=== PATIENT | male | born 1940 | race Caucasian/White ===

== ENCOUNTER 2019-07-26 18:22 | Inpatient (IN) | payer OTHER ==
[~2019-07-26] VITALS: Ht 177.8 cm; Wt 90.4 kg
[2019-07-26 18:22] VITALS: BP 145/82
[2019-07-26 19:11] LABS: HEMATOCRIT 38.8 % (42.0-52.0); HEMOGLOBIN 13.2 gm/dL (14.0-18.0); MCH 29.3 pg (26.0-34.0); MCHC 34.1 g/dL (28.0-37.0); MCV 85.8 fL (80.0-100.0); PLATELET COUNT 153 thou/uL (150-400); RBC 4.52 mil/uL (4.50-6.00); RDW 15.7 % (10.5-14.5); WBC 6.7 thou/uL (4.0-11.0)
[2019-07-26 19:20] LABS: ANION GAP 9 mmol/L (7-16); BUN 24 mg/dL (7-18); CALCIUM 9.6 mg/dL (8.5-10.1); CHLORIDE 108 mmol/L (98-107); CO2 28 mmol/L (21-32); CREATININE 1.6 mg/dL (0.7-1.3); GLUCOSE 132 mg/dL (74-106); POTASSIUM 4.2 mmol/L (3.5-5.1); SODIUM 145 mmol/L (136-145)
[2019-07-26 19:27] LABS: SGOT 34 U/L (15-37); SGPT 34 U/L (30-65); TOTAL BILIRUBIN 3.4 mg/dL (<0.1-1.0); TOTAL PROTEIN 6.9 g/dL (6.4-8.2)
[2019-07-26 19:29] LABS: SALICYLATE < 2.8 mg/dL (2.8-20.0)
[2019-07-26 19:56] LABS: ABSOLUTE NEUTROPHILS 4.6 thou/uL (1.4-8.2)
[2019-07-26 19:57] LABS: ANISOCYTOSIS 1+
[2019-07-26 20:18] LABS: URINE BILIRUBIN 1+ (Negative); URINE BLOOD TRACE (Negative); URINE CLARITY CLEAR; URINE COLOR YELLOW; URINE GLUCOSE-RANDOM* NEGATIVE (Negative); URINE KETONES NEGATIVE (Negative); URINE LEUKOCYTES-REFLEX NEGATIVE (Negative); URINE NITRITE-REFLEX NEGATIVE (Negative); URINE PROTEIN (DIPSTICK) NEGATIVE (Negative); URINE SPECIFIC GRAVITY >= 1.030 (1.005-1.035)
[2019-07-26 20:19] LABS: ICTOTEST (BILI CONFIRMATORY) Negative (Negative)
[2019-07-26 20:23] LABS: AMP/METHAMP Negative (Negative); BARBITURATES Negative (Negative); BENZODIAZEPINES Negative (Negative); COCAINE Negative (Negative); METHADONE Negative (Negative); OPIATES Negative (Negative); PCP Negative (Negative)
[2019-07-26] MEDS ORDERED: PLAVIX 75 MG TA75 MG PO (21:14)
[2019-07-26] MEDS ORDERED: LIPITOR40 MG PO (21:14)
[2019-07-26] MEDS ORDERED: ASA81BEC PO (21:14)
[2019-07-26] MEDS ORDERED: LORATIDINE 10 M10 M1 PO (21:15)
[2019-07-26] MEDS ORDERED: RISPERDAL0.5 MG PO (21:15)
[2019-07-26] MEDS ORDERED: SEROQUEL 100 M100 M1 PO (21:15)
[2019-07-26] MEDS ORDERED: SUPER THERAVIT1 EACH PO (21:15)
[2019-07-26] MEDS ORDERED: SEROQUEL 50 MG50 M1 PO ×2 (21:16)
[2019-07-26] MEDS ORDERED: VITAMIN B12-FO1 EAC1 PO (21:17)
[2019-07-26] MEDS ORDERED: FAMOTIDINE 20 M20 MG PO (21:17)
[2019-07-26] MEDS ORDERED: ZYPREXA 5 MG TAB5 M1 PO (21:17)
[2019-07-26] MEDS ORDERED: PROPRANOLOL 4040 M1 PO (21:18)
[2019-07-26] MEDS ORDERED: DULCOLAX10 MG RECTAL (21:21)
[2019-07-26] MEDS ORDERED: LORAZEPAM 0.50.5 MG PO (21:22)
[2019-07-26] MEDS ORDERED: OLANZAPINE10 M2 IM (21:22)
[2019-07-26 21:23] VITALS: BP 105/67
[2019-07-26 22:09] VITALS: BP 118/69
--- NOTE | 2019-07-27 00:11 | NUR ---
Pt admitted to unit from [facility] ER @ 2300 via gurney. Pt assisted to bed with two person assist. Pt had difficulty with ambulation et appeared very confused when asked if he could walk. VSWNL. Health assessment with no abnormalities noted other than bilateral bruising to flanks. Pt states he is unsure how obtained the bruising to flanks. Pt denies SI/HI/AVH @ present time. Consent to treat obtained from DPOA Emily Teixeira which is pt's daughter. Physician called et orders obtained. Hospitalist notified of pt's admission to unit. Pt currently resting in bed with eyes closed. Will continue to monitor per protocol.
[2019-07-27 02:49] VITALS: BP 132/72
--- NOTE | 2019-07-27 08:35 | EKG ---
[facility] [place] [address] ELECTROCARDIOGRAM REPORT Name: ADRIA TELLO V Room #: 523A-A ADM IN M.R.#: [id number] Admission: 07/26/19 Attend Phys: Fidencio Rosen DO Discharge: Date of : 40 Report #: [id number] THIS REPORT FOR: cc: FATMATA BULLOCK Physician not on staff Vicente Leal MD [facility] ~ THIS REPORT FOR: //name// [facility] ED Test Date: 2019-07-26 Test Time: 19:13:02 Pat Name: ADRIA TELLO Department: Room: [facility] Gender: M Software Integration Developer: JOHN : 1940 Requested By: Gina Wilcox Order Number: [id number] MD: Vicente Leal Measurements Intervals Daniel Rate: 94 P: 45 KS: 171 QRS: -44 QRSD: 105 T: 54 QT: 363 QTc: 454 Interpretive Statements Sinus rhythm Left anterior fascicular block Abnormal R-wave progression, late transition No previous ECG available for comparison Electronically Signed On 07-27-2019 8:33:55 CDT by Vicente Leal [email or web address] <ELECTRONICALLY SIGNED> By: Vicente Leal MD, FACC 07/27/19 0833 191 12 Vicente Leal MD, [facility] /EPI
[2019-07-27 08:39] VITALS: BP 136/72
--- NOTE | 2019-07-27 09:26 | NUR ---
Sw spoke with Emily PAULSON and she described the mental helath changes and possible memory loss of her dad. Pt was in rehab in [place] and formerly [facility] would like him rehab to home but is not sure if that is viable. Kade completed he intake assesment and TP.
--- NOTE | 2019-07-27 10:58 | NUR ---
PATIENT CARE ASSUMED AT 1900. PATIENT UP IN DINING BHATT WHEN APPROACHED. PATIENT REFUSED MEDICATIONS THIS MORNING. CONFUSED BUT WANTED TO KNOW WHO PRESCRIBED AND HAD NOT SEEN ANY DOCTOR SINCE ARRIVAL. PATIENT WAS IRRITATED WHEN ENCOURAGED. ADVISED DR. LANDIN OF REFUSAL AND HE PRESCRIBED IM 5 MG. OF ZYPREXA WHEN MEDS REFUSED. PATIENT WAS VERY COMPLIANT AND NON RESISTANT WITH IM. PATIENT BECAME MUCH MORE PLEASANT DAY PROGRESSED. CALLED DAUGHTER LUBA FOR APPROVAL AND NOTIFICATION OF ORDERED SHOT AND RATIONAL BEHIND IT. DAUGHTER RETURNED CALL AND UNDERSTOOD AND OK WITH IM. PATIENT HAS BEEN MANUVERING AROUND UNIT IN WHEELCHAIR. UNSTEADY ON FEET AND HISTORY OF FALLS PER DAUGHTER. ADVISED TO TELL PATIENT VA MEDICATIONS PER DAUGHTER AND WILL READILY TAKE.
--- NOTE | 2019-07-27 14:53 | NUR ---
Emily returned VM and confimred that there canbe a family meeting at 12:[address] gresham request.
--- NOTE | 2019-07-27 14:59 | NUR ---
SW completed intake assemsnst and TP. Set up famiy meeting ofr TR at 12:30pm confirmed with Dr gresham
--- NOTE | 2019-07-27 15:36 | NUR ---
LOGGING SUPERVISOR met 1;[address] of RT group[address] Patient is friendly and cordial in interaction. He answered all assessment questions. Patient appeared to be hallucinating; reaching for his wallet in his back pocket, opening it, and handing his "credit card" to pay for his stay. Patient then looked through [employer] magazine.
--- NOTE | 2019-07-28 00:02 | NUR ---
Assumed care of patient this pm shift. Patient is oriented to self. Patients affect blunted. Patient denies hi/si. Patient denies pain. Patient is difficult to understand when speaking. Using yes and no questions seem to help. Patient ambulates via wheel chair. Patient takes medications whole. Patient has been trying to get out of bed and started hitting and kicking the bed rails. Patient was spoken to about the time and importance of a good night sleep. Patient resumed hitting the rails after rn left the room. Patient given an im injection for agitation. Patients assessment shows clear breath sounds, active bowel sounds, and s1 s2 heard with auscultation. We will continue to monitor.
[2019-07-28 07:17] LABS: ALBUMIN 3.7 g/dL (3.4-5.0); DIRECT BILIRUBIN 0.7 mg/dL (<0.1-0.2); TOTAL BILIRUBIN 3.3 mg/dL (<0.1-1.0); TOTAL PROTEIN 5.8 g/dL (6.4-8.2)
[2019-07-28 09:04] VITALS: BP 132/82
--- NOTE | 2019-07-28 11:08 | NUR ---
Sitting in WC without s/o distress. Laughing and making comments to staff. Initially resistant to taking meds but then took whole without difficulty. Confused speech at times. Alert and orientated X3, denies SI/HI. Breath sounds clear t/o. Reg HR auscultated. Color pink with brisk capillary refill and palpable peripheral pulses. Active bowel sounds over soft, rounded abdomen. Currently sitting on toilet trying to pass BM. Able to stand and take a few steps with assistance but gait unsteady. Resistant to help with ambulation.
--- NOTE | 2019-07-28 13:53 | NUR ---
SW attempted to complete the SLUMS with this pt and he was unable to answer the simple questions. Pt is unable to follow simple directions. Pt is pleasantly confused.
[2019-07-28 14:47] LABS: FOLIC ACID 61.9 ng/mL (8.6-58.9)
--- NOTE | 2019-07-28 16:48 | NUR ---
CESAR attempted to complete the SLUMS and pt was not able to do this. CESAR then called and spoke to Emily and she asked theat the [phone] ([phone] ATTOlive Amaya.
[2019-07-28 20:37] VITALS: BP 123/81
--- NOTE | 2019-07-28 23:08 | H ---
[facility] [place] [address] HISTORY AND PHYSICAL Name: ADRIA TELLO V Room #: 523A-A ADM IN M.R.#: [id number] Admission: 07/26/19 Attend Phys: Fidencio Rosen DO Discharge: Date of : 40 Report #: [id number] THIS REPORT FOR: cc: FATMATA BULLOCK Physician not on staff Fidencio Rosen DO ~ CC: Fidencio BULLOCK Physician staff DATE OF SERVICE: 07/26/2019 INPATIENT PSYCHIATRIC EVALUATION ATTENDING PHYSICIAN: Fidencio Rosen DO. RISK REDUCTION COUNSELOR: Cb Dang MD REASON FOR ADMISSION AND CHIEF COMPLAINT: Behavioral disturbance at the nursing facility in the [place], [place]. SOURCES OF INFORMATION: Outside records and Emergency Room notes. HISTORY OF PRESENT ILLNESS: This is a 78-year-old male whose family had contacted us prior to his ER presentation. The daughter lives in [place]. Apparently, the patient reported hallucinations. Symptoms began on 07/02/2019 and are increasing worse since. Per the patient's family the patient has "not really been himself" and has become more agitated at the staff at his SNF per SNF records. The patient has been bothering other residents and became aggressive only. Recently they reported medication has been changed since the symptoms began. The patient's family also states that they have noticed more jaundice in the patient as well as he is having an elevated bilirubin and A1c levels since he began to stay long-term 4 days ago. No aggravating, no relieving factors. No new medications for symptoms prior to arrival. He denied fever, chills, nausea, vomiting or cough, shortness of breath. PAST SURGICAL HISTORY: CABG, stent placement, knee replacement. MEDICAL HISTORY: Hypertension. CURRENT HOME MEDICATIONS: Metoprolol. Other home medications include aspirin 81 mg p.o. daily, atorvastatin 40 mg p.o. daily, Plavix 75 mg p.o. daily, loratadine 10 mg p.o. daily, multivitamin, risperidone 1 mg p.o. at bedtime. Seroquel 150 mg p.o. at bedtime, 50 mg in the morning. B12 and folic acid supplement, olanzapine 5 mg p.o. daily, famotidine 20 mg b.i.d., propranolol 40 mg p.o. b.i.d., Dulcolax suppository p.r.n. and p.r.n. olanzapine and lorazepam. [facility] [address] [place] [address] HISTORY AND PHYSICAL Name: ADRIA TELLO V Room #: 523A-A ADM IN [facility].#: [id number] Admission: 07/26/19 Attend Phys: Fidencio Rosen DO Discharge: Date of : 40 Report #: [id number] ALLERGIES: MORPHINE, OXYCODONE, TRAMADOL. SOCIAL HISTORY: Denies smoking, alcohol or recreational drug use. REVIEW OF SYSTEMS: From the ER, CONSTITUTIONAL: Negative for fever or chills. RESPIRATORY: Negative for cough or shortness of breath. CARDIOVASCULAR: Negative for chest pain or palpitations. MUSCULOSKELETAL: Negative for back pain or muscle pain. SKIN: Negative for any rashes. NEUROLOGICAL: Negative for numbness, tingling or weakness. Otherwise, review of systems limited due to the patient's cooperation and dementia. VITAL SIGNS: Weight 90.72 kg, height 177.8 cm. Physical exam grossly normal. LABORATORY DATA: From the ER, sodium 145, potassium 4.2, chloride 108, bicarbonate 28, anion gap 9, BUN 24, creatinine 1.6, estimated GFR 42, glucose 132, calcium 9.6, total bilirubin 3.4, AST 34, ALT 34, alkaline phosphatase 170, total protein 6.9, albumin 4.0. White count 6.7, H and H 13.2 and 38.8, platelet count 153. UDS was negative. Tylenol less than 2, salicylate is less than 2.8. Alcohol less than 10. Urinalysis showed 1+ bilirubin, trace blood. EKG was done in the ER. It showed QTc 454, QT 363, AL 171, heart rate 94, left anterior fascicular block, sinus rhythm. Some additional laboratories reviewed. White cell count 5.3 that was done on 07/13/2019 in [place]. H and H 13.9 and 41.5, platelet count was low at 119. Urinalysis was negative at that time. Electrolytes showed total bilirubin of 3.5, it looks like they do not break down direct or indirect. Serum protein of 5.9. The bilirubin was negative in the urine then. Blood negative. Leukocyte esterase negative. It looks like the patient was admitted at hospital in [place] briefly. I have some records around 07/01/2019. That hospitalization described he was agitated, behavioral changes, confuses, hallucinations. Seroquel and aspirin were started. Some other notes from the long-term on 07/25/2019, having auditory hallucinations. Admission in [place] for being combative with assistants and behavioral difficulty at the long-term. I have some notes from 05 of July there, so I think it was longer than 4 days at the [facility] and 4 days may have been at the medical center hospitalization. PHYSICAL EXAMINATION: Seated in wheelchair. He pushed my hand away when I went to check his name on his ID band. [facility] [place] [place] [address] HISTORY AND PHYSICAL Name: ADRIA TELLO V Room #: 523A-A ADM IN M.R.#: [id number] Admission: 07/26/19 Attend Phys: Fidencio Rosen DO Discharge: Date of : 40 Report #: [id number] MENTAL STATUS EXAMINATION: This is a well-developed, age appearing male, wearing glasses. Attention limited. Concentration limited. Speech is normal rate. Thought process linear and goal directed. Thought content, stated he was a . Intermittent psychomotor agitation. Mood and affect constricted, irritable, congruent. Denied SI or HI. Denied auditory, visual, or tactile hallucinations to me, but I think he does have them. Insight impaired, judgment impaired. Suspect memory impaired, but did not test today. Fund of knowledge diminished. FORMULATION: A 78-year-old male brought in for behavioral disturbance from long-term. DIAGNOSES: Major neurocognitive disorder, probably Alzheimer's suspicious with behavioral disturbance, number of comorbidities including hyperlipidemia, coronary artery disease. PLAN: Evaluate, stabilize, obtain collateral. With regard to medications, ordered 5 mg at bedtime of olanzapine, 40 mg atorvastatin, 40 mg b.i.d. propranolol, 2.5 mg daily olanzapine, change to prn from scheduled Seroquel, multivitamin daily, loratadine daily. Folic acid, B12 supplement, famotidine. Remains on Seroquel 50 mg p.r.n. at bedtime. Otherwise, house PRNs. Plan to titrate up the olanzapine. Also will contact daughter, Candido, at [phone]. I will give a quick buzz to her. Time spent on interview, review of records, coordination of care is at least 60 minutes. STRENGTHS: She is insured, supportive family. WEAKNESSES: Neurodegenerative history, number of medical problems. <ELECTRONICALLY SIGNED> By: Fidencio Rosen DO 07/28/19 2308 [id number] [id number] Fidencio Rosen DO /nt
[2019-07-28 23:13] VITALS: BP 123/81
--- NOTE | 2019-07-29 00:28 | NUR ---
Assumed care of patient this pm shift. Patient sitting in mileu in a wheelchair. Patient is hard of hearing. Patient is confused about why he is here. Patients affect is blunted. Patient speaks in low tones. Patient denies hi/si. Patient ambulates via wheel chair and is unable to bare the majority of his weight. Patient requires assist of 2 to get back to bed. Patients assessment shows clear breath sounds, active bowel sounds, and s1 s2 heard with auscultation. Patient has swelling bilaterally in ankles. We will continue to monitor.
[2019-07-29 08:03] VITALS: BP 124/78
[2019-07-29 08:45] LABS: ALBUMIN 3.6 g/dL (3.4-5.0); CALCIUM 9.3 mg/dL (8.5-10.1); CREATININE 1.3 mg/dL (0.7-1.3); TOTAL BILIRUBIN 3.4 mg/dL (<0.1-1.0); TOTAL PROTEIN 6.6 g/dL (6.4-8.2)
--- NOTE | 2019-07-29 14:01 | NUR ---
UP IN W/C MOST OF DAY. ORIENTED TO NAME ONLY FORGETFUL AND CONFUSED. SPEECH MUMBLY AND WORDS DO NOT MAKE SENSE. APPEARS TO BE HAVING VISUAL HALLUCINATIONS TALKING ABOUT WORKING AND MAKING PARTS. FAIR APPETITE. NO C/O PAIN.
--- NOTE | 2019-07-29 15:43 | NUR ---
CESAR sent referral to [facility], fax [phone]. CESAR Contacted [facility] and was informed they only accept [facility] residents.
[2019-07-29 17:43] VITALS: BP 130/61
--- NOTE | 2019-07-29 18:09 | NUR ---
FOUND ON FLOOR IN BHATT. WAS AMBULATING WITH WALKER. NO APPARENT INJURY AND PATIENT DENIES INJURY. ASSTED TO [facility] CHAIR WITH LAP BELT AND CHAIR ALARM. NOTIFIED.
[2019-07-29 19:43] VITALS: BP 104/74
[2019-07-29 20:00] VITALS: BP 104/74
[2019-07-29 20:07] LABS: SYPHILIS AB Non Reactive (Non Reactive)
--- NOTE | 2019-07-30 02:16 | NUR ---
ASSESSMENT: PT WAS IN THE DAYROOM UNTIL 2129. ONCE TAKEN TO BED HE TURNED SIDE WAYS 3 TIMES IN ATTEMPTS TO GET OOB. USED BELLIGERENT LANGUAGE TOWARDS STAFF AND SCREAMED ABOUT LEAVING HIM ALONE AND OT GET OUT OF HIS ROOM. TEMP AT 2000 WAS 99.5 RETAKE OF TEMP AT 0000 WAS 98.3. DID REQUIRE A IM INJECTION OF OLANZAPINE 5 MG AT 2330. REMAINS FREE FROM FALLS, POC FOLLOWED. SLOW PROGRESS, WILL CONTINUE TO MONITOR.
[2019-07-30 07:51] VITALS: BP 97/63
--- NOTE | 2019-07-30 09:55 | NUR ---
Assumed care at 0700. Patient is oriented only to self. At one time he had a brief outburst of raising his voice, pointing his finger. He denies pain, has no concerns at this time.
--- NOTE | 2019-07-30 12:29 | NUR ---
At lunch took out upper denture. Declined to have it replaced into his mouth after fixodent was applied. Then threw tray on the floor. Has orange coloring on his lips like lipstick but not lipstick. Took out lower denture. Trying to fight staff who is attempting to put denture in a safe place. He is not saying why he is doing those things. Unknown trigger for aberrant behavior. He was offered ice creaq, pudding, and applesauce as alternative foods to lunch. He declined to eat even though meat was cut up finely.
--- NOTE | 2019-07-30 18:47 | NUR ---
No voiced complaints. Needs staff to feed him. He is not able to focus on feeding himself. He had dentures in for dinner with staff helping feed him. He does not offer conversation.
[2019-07-30 20:01] VITALS: BP 129/87
--- NOTE | 2019-07-31 05:21 | NUR ---
Assumed care of pt @ 1900. Pt calm et cooperative this shift. Took medications crushed in applesauce. Socialized in dayroom with peers until HS. Pt unable to communicate clearly, but appeared to enjoy himself. VSWNL. Health assessment with no abnormalities noted at present time. Unable to assess SI/HI but pt does not appear to be in any acute distress at present time. Currently resting in bed with eyes closed. Will continue to monitor per protocol.
[2019-07-31 07:41] VITALS: BP 148/73
--- NOTE | 2019-07-31 09:15 | NUR ---
Date of Admission: 07/26/19 Date of Activity Therapy Assessment:07/28/2019 Activity Goal: 1:1, engagement in the milieu Initial Goal: Communication, orientation and structure Weekly progress towards goal: Did not achieve Group participation level: N/A- COVID 19 Behaviors observed: Difficulty concentrating. Yelling out to peers when RT tries to engage him in 1:1 session. Difficult to engage. Throwing leisure items (i.e. blocks). Plan: No change towards goal
--- NOTE | 2019-07-31 12:06 | NUR ---
SITTING IN GERICHAIR IN DAYROOM EATING BREAKFAST UPON INITAL ASSESSMENT THIS AM. REQUIRES ASSIST WITH FEEDING SELF AND WHEN GIVEN AM MEDICATIONS NOTED TO HAVE SEVERAL WHOLE PEICES OF FRUIT IN HIS MOUTH. SPEECH GARBLED AND DIFFICULT TO UNDERSTAND AND APPEARS TO BE FRAGMENTED AND NON-GOAL DIRECTED. ORIENTED TO NAME ONLY. OBSEVED TO BEGIN TO LAUGH LOUDLY WITH NO APPARENT TRIGGER ,TALKING LOUDLY TO SELF VS UNSEEN OTHERS. RESTLESS AT TIMES IN GERICHAIR BUT AFTER TOILETING AND REPOSITIONING OR DIVERSONAL ACTIVITY IS ABLE TO BE DISTRACTED/COMFORTED AND BECOMES CALMER. NO NOTED FACIAL GRIMACING OR MOANING OR ANY OTHER INDICATERS OF PAIN/DISCOMFORT. VS STABLE. REMAINS ON HIGH FALLS RISK
--- NOTE | 2019-07-31 15:05 | NUR ---
DURING PHYSICAL ASSESSMENT THIS PM SOCKS REMOVED TO CHECK FEET AND IS OBSERVED TO HAVE SMALL ABRASIONS TO 3RD,4TH AND 5TH TOE OF RIGHT FOOT AND GREEAT TOE OF LEFT FOOD. ABRASIONS ARE PEA SIZED AND HAVE NO DRAINGE. FEET ARE SWOLLEN,COLD TOT OUCH AND PURPULE COLORED. DR. LANDIN AND DR. NGUYEN NOTIED. LEGS ELEVATED AND SOCKS REMOVED. ORDERS RECEIVED-WOUNDS PHOTGRAPHED AND PLACED IN CHART.
[2019-07-31 16:46] LABS: HEMATOCRIT 39.5 % (42.0-52.0); HEMOGLOBIN 13.6 gm/dL (14.0-18.0); MCH 29.6 pg (26.0-34.0); MCHC 34.3 g/dL (28.0-37.0); MCV 86.2 fL (80.0-100.0); PLATELET COUNT 195 thou/uL (150-400); RBC 4.59 mil/uL (4.50-6.00); RDW 15.6 % (10.5-14.5)
--- NOTE | 2019-07-31 17:00 | NUR ---
INCONTINENT OF LARGE LOOSE STOOL,SMALL AMOUNT OF URINE IN BRIEF APPEARS CONCENTRATED AND HAS STRONG ODOR-REQUIRED MAX ASSIST OF THREE TO TRANSFER-WHEN PERINEAL CARE AND BEDDING CHANGE BEING DONE NOTED TO HAVE EXTENSIVE BRUISING PURPLE/REDDISH IN COLOR TO RIGHT LOWER RIB CAGE/ABDOMEN AND EXTENDING INTO RIGHT HIP AND COCYX. AND NOTIFIED AND PHOTO OBTAINED AND PLACED IN CHART. LE DOPPLER ORDERED AND US AT BEDSIDE CURRENTLY.
[2019-07-31 17:07] LABS: ABSOLUTE NEUTROPHILS 6.9 thou/uL (1.4-8.2)
[2019-07-31 17:08] LABS: ANISOCYTOSIS 1+
[2019-07-31 17:13] LABS: ALBUMIN 3.8 g/dL (3.4-5.0); CALCIUM 9.1 mg/dL (8.5-10.1); CREATININE 1.5 mg/dL (0.7-1.3); DIRECT BILIRUBIN 0.7 mg/dL (<0.1-0.2); PHOSPHORUS 3.8 mg/dL (2.5-4.9); POTASSIUM 4.3 mmol/L (3.5-5.1); TOTAL BILIRUBIN 2.9 mg/dL (<0.1-1.0); TOTAL PROTEIN 6.2 g/dL (6.4-8.2)
--- NOTE | 2019-07-31 19:28 | NUR ---
RESULTS OF LE DOPPLER AND STAT LAB WORK CALLED TO DR. NGUYEN-ORDER RECEIVED FOR IV FLUIDS NS AT 50 CC PER HOUR-1;[address] NGUYEN-DR. LANDIN CONTACTED AND ORDER RECEIVED FOR 1;1 WELL-STATES HE WILL CALL DR. NGUYEN RE CHANGING IV RATE TO BE 4 HR BOLUS. IV STARTED IN LEFT UPPER ARM WITH 20 GUAGE NEEDLE BY IV START TEAM.
[2019-07-31 19:47] VITALS: BP 120/69
--- NOTE | 2019-08-01 02:28 | NUR ---
ASSUMED PT CARE AROUND 1930. ALERT AND CONFUSED. DOES FOLLOW COMMAND TO TAKE MEDS. KAREEM IV ACCESS WAS EXTABLISHED. HYDRATION ORDER RE-ORDERED BY PER UNIT PROTOCOL AND COMPLETED 500CC NS AFTER CLARIFICATION. KEPT NPO AFTER MN FOR PIPIDA IN AM. NO S/S ACUTE DISTRRES NOTED OR REPORTED AT THIS TIME. WILL CONT TO MONITOR FOR ANY CHANGES IN CONDITION.
[2019-08-01 05:56] LABS: ABSOLUTE NEUTROPHILS 5.4 thou/uL (1.4-8.2); BASOPHILS 0.6 % (0.0-2.0); EOSINOPHILS 3.7 % (0.0-3.0); HEMATOCRIT 37.4 % (42.0-52.0); HEMOGLOBIN 12.7 gm/dL (14.0-18.0); LYMPHOCYTES 12.9 % (24.0-44.0); MCH 29.5 pg (26.0-34.0); MCV 86.9 fL (80.0-100.0); MONOCYTES 10.5 % (1.0-8.0); PLATELET COUNT 159 thou/uL (150-400); POLYS 72.3 % (36.0-66.0); RBC 4.31 mil/uL (4.50-6.00); RDW 15.8 % (10.5-14.5); WBC 7.5 thou/uL (4.0-11.0)
[2019-08-01 06:07] LABS: INR 1.1; PROTIME 11.4 Seconds (9.3-11.4)
[2019-08-01 06:20] LABS: ALBUMIN 3.5 g/dL (3.4-5.0); CALCIUM 8.9 mg/dL (8.5-10.1); CREATININE 1.4 mg/dL (0.7-1.3); PHOSPHORUS 3.6 mg/dL (2.5-4.9); TOTAL BILIRUBIN 2.8 mg/dL (<0.1-1.0); TOTAL PROTEIN 6.2 g/dL (6.4-8.2)
[2019-08-01 08:40] VITALS: BP 136/84
--- NOTE | 2019-08-01 09:30 | NUR ---
Assumed care 0700. Npo for liver testing. Stat RT tx. done. Bladder scanned with 707cc. Straight cathed with 850cc returned tyler with a couple red threads, with specimen sent for culture. went to testing with staff accompaniment.
[2019-08-01 10:28] LABS: LIPASE 124 U/L (73-393)
[2019-08-01 10:36] LABS: AMYLASE 25 U/L (25-115)
[2019-08-01] MEDS ORDERED: FLOMAX0.4 MG PO (14:00)
[2019-08-01] MEDS ORDERED: ZYPREXA 5 MG TAB5 M1 PO ×2 (14:01→14:02)
[2019-08-01] MEDS ORDERED: PEPCID20 MG PO (14:05)
[2019-08-01] MEDS ORDERED: PROSCAR 5MG TABL5 MG PO (14:06)
[2019-08-01] MEDS ORDERED: FOLIC ACID1 MG PO (14:06)
--- NOTE | 2019-08-01 15:10 | NUR ---
Returned to unit prior to lunch. was assisted with eating, though took his dentures out, ended up eating pudding/applesauce, drinking beverages. Pericare with 2 formed small BM's. Confused. Tried to get out of bed x 3. Dentures temporarily misplaced were located prior to being sent to room 203 at 1510. IV sites left upper arm and right wrist removed due to no longer needing them. Wound care nurses were on unit for lower extremities. Scabbed sores on toes bilaterally. Toes/feet get reddened when hang down. When in bed color on toes and feet dramatically improve. BLE with edema, non pitting. Glasses and dentures sent to 203 with pt. accompanied by 2 staff w/belongings.
--- NOTE | 2019-08-02 12:09 | HC ---
[facility] [place] [address] CONSULTATION Name: ADRIA TELLO V Room #: [address] [place] [address] IN M.R.#: [id number] Admission: 07/26/19 Attend Phys: Fidencio Rosen DO Discharge: 08/01/19 Date of : 40 Report #: [id number] THIS REPORT FOR: cc: FATMATA BULLOCK Physician not on staff Wallace Burks MD ~ CC: Fidencio BULLOCK Physician staff DATE OF SERVICE: 08/01/2019 CONSULTING PHYSICIAN: Dr. Burks. REASON FOR CONSULTATION: Possible choledocholithiasis. ASSESSMENT: 1. Possible choledocholithiasis. 2. Biliary dyskinesia. RECOMMENDATIONS: 1. Thank you for the consultation. I will follow along. 2. The patient is going for MRCP. We will follow up results. 3. Pending MRCP results, the patient may need an ERCP. 4. The patient should have laparoscopic cholecystectomy this hospitalization if he does indeed have choledocholithiasis. 5. Please consider holding Plavix and aspirin in the event that he will need a procedure. HISTORY OF PRESENT ILLNESS: The patient is a very pleasant 78-year-old gentleman who is in the behavioral health unit due to hallucinations. The patient is not oriented to place or time and is not able to answer medical questions and is very difficult to understand. Therefore, the information was obtained from the chart and medical staff. The patient was found to have hyperbilirubinemia. A HIDA scan was performed that demonstrated a possible CBD partial obstruction. The patient currently denies abdominal pain, nausea or vomiting. PAST MEDICAL HISTORY: 1. Hypertension. 2. Hyperlipidemia. 3. Coronary artery disease, status post coronary artery bypass graft. 4. Anxiety. PAST SURGICAL HISTORY: Unknown. No major surgical incisions on his abdomen [facility] [address] [place] [address] CONSULTATION Name: ADRIA TELLO V Room #: 523A-A [facility] IN ..#: [id number] Admission: 07/26/19 Attend Phys: Fidencio Rosen DO Discharge: 08/01/19 Date of : 40 Report #: [id number]. FAMILY HISTORY: Unknown. REVIEW OF SYSTEMS: Unable to obtain. SOCIAL HISTORY: Unknown. PHYSICAL EXAMINATION: VITAL SIGNS: Temperature 36.3, pulse 84, respiratory rate 17, blood pressure 136/84, oxygen saturations 92% on room air. GENERAL: No apparent distress, alert and oriented to person only. HEENT: PERRLA, EOMI, MMM, NCAT NECK: Supple. No LAD CARDIOVASCULAR: Regular rhythm and rate. Hemodynamically stable. Normal capillary refill. Regular rhythm and rate. Hemodynamically stable. Normal capillary refill. PULMONARY: Nonlabored. Clear to auscultation bilaterally ABDOMEN: Soft, nontender to palpation, no guarding, no rigidity, no rebound tenderness, no hernias. EXTREMITIES: Calves soft, nontender, no edema. SKIN: No rashes or bruises. PSYCHIATRIC: Normal mood and affect Normal mood and affect NEUROLOGICAL: Grossly intact. CN II-XII grossly intact. MUSCULOSKELETAL: 5/5 strength in upper extremities and lower extremities bilaterally LYMPHATICS: No cervical, inguinal, or supraclavicular lymphadenopathy. LABORATORY DATA: White blood count 7.5, hemoglobin 12.7, hematocrit 37.4, platelets 159. Sodium 141, potassium 4, creatinine 1.4, bilirubin 2.8, alkaline phosphatase 147, AST 53, ALT 31, lipase 124. IMAGING: Abdominal ultrasound. Impression: 1. Larynx sludge within the gallbladder. No gallbladder wall thickening or tenderness with scanning. 2. Portal vein flow was normal. Hepatic veins are patent. 3. Moderate splenomegaly was present. Hepatobiliary scan: Impression: Homogenous distribution throughout the liver with normal filling of the gallbladder on the 18 minutes image. Activity was visualized with moderate reflux in the stomach. Activity was also identified in the small bowel. Common bile duct is prominent. Gallbladder ejection fraction was significantly [address] [address] CONSULTATION Name: ADRIA TELLO V Room #: 523A-A [facility] IN M.R.#: [id number] Admission: 07/26/19 Attend Phys: Fidencio Rosen DO Discharge: 08/01/19 Date of : 40 Report #: [id number] decreased measuring 33%. Findings of decreased ejection fraction will be consistent with gallbladder dysfunction. The common bile duct was prominent and there may be a partial obstruction of the common bile duct. MRCP could be used to further evaluate the distal common bile duct for partially obstructing calculus or mass. <ELECTRONICALLY SIGNED> By: Wallace Burks MD 08/02/19 1209 1702 [id number] Wallace Burks MD /nt
[2019-08-02 13:08] LABS: HEPATITIS B SURFACE AG Negative (Negative); HEPATITIS C VIRUS AB <0.1 (0.0-0.9)
--- NOTE | 2019-08-02 16:13 | D ---
[facility] [place] [address] DISCHARGE SUMMARY Name: ADRIA TELLO V Room #: 523A-A [facility] IN M.R.#: [id number] Admission: 07/26/19 Attend Phys: Fidencio Rosen DO Discharge: 08/01/19 Date of : 40 Report #: [id number] THIS REPORT FOR: cc: FATMATA BULLOCK Physician not on staff Fidencio Rosen DO ~ THIS REPORT FOR: //name// CC: Fidencio BULLOCK Physician staff DATE OF SERVICE: 08/01/2019 INPATIENT PSYCHIATRIC DISCHARGE SUMMARY ATTENDING PHYSICIAN: Fidencio Rosen DO INSPECTION MACHINE TENDER: Yessi Beauchamp MD DISCHARGE DIAGNOSIS: Major neurocognitive disorder, likely due to Alzheimer disease with behavioral disturbance, some improvement. The patient was discharged to one of the medical floors at [facility]. Her medical problems as follows: He has chronic cholecystitis, likely choledocholithiasis, acute urinary retention, CKD stage III, rhabdomyolysis, toe blister, cellulitis of the feet, leg edema, hypertension, GERD, neuropathy, mild anemia, hyperbilirubinemia with elevated alkaline phosphatase. The patient at this point needed intravenous fluids, intravenous antibiotics and magnetic resonance cholangiopancreatography, requiring services beyond what we can provide on Geriatric Psychiatry. The patient is n.p.o. MEDICATIONS: He was taking, which will be continued per Dr. Beauchamp's wishes, tamsulosin 0.4 mg p.o. daily for BPH, olanzapine 5 mg in am, 10 mg p.o. at bedtime, famotidine 20 mg p.o. daily for GERD, folic acid 1 mg p.o. daily, finasteride 5 mg p.o. daily for BPH, aspirin 81 mg p.o. daily, atorvastatin 40 mg p.o. daily, Plavix 75 mg p.o. daily, Ativan 1 mg p.o. daily, propranolol 40 mg p.o. b.i.d. REASON FOR ADMISSION: Back on the or so is as follows, a 78-year-old male presented to the ED with his daughter due to concern of hallucinations. He has been increasingly worse since 07/02/2019. The patient has been in a nursing facility in [place], [place]. The family is also concerned about jaundice, which seems to be the main reason for his discharge and admission to the [facility] [address] [place] [address] DISCHARGE SUMMARY Name: ADRIA TELLO V Room #: 523A-A [facility] IN [facility]#: [id number] Admission: 07/26/19 Attend Phys: Fidencio Rosen, Discharge: 08/01/19 Date of : 40 Report #: [id number]. HOSPITAL COURSE: The patient was admitted to Geriatric Psychiatry Unit. I increased his olanzapine regimen slightly. The patient's behavior was generally good. He has a very advanced dementia, poor ability to walk. At the day of discharge, the patient was not overtly suicidal or homicidal. PHYSICAL EXAMINATION: VITAL SIGNS: On the day of discharge, temperature 36.3, pulse 84, respirations 24, BP 136/84, O2 sat 88%. LABORATORY DATA: At time of discharge, H and H 12.7 and 37.4, down from 13.6 prior, white blood cell count 7.5, platelet count 159. PT 11.4, INR 1.1. Chemistries were noted for sodium 142, potassium 4.3, chloride 107, bicarb 25, anion gap 10. This was all on 08/01/2019. BUN 28, creatinine 1.4. We did hydrate in half liter before discharge, estimated GFR 49. Ferritin was 1362, total bilirubin 3.4, direct 0.7, AST 51, ALT 32, alk phos 152. Ammonia less than 10. CK had been as high as over 1100 down to 832, total protein 6.5, albumin 3.6, triglycerides 132, cholesterol 119, LDL 63, VLDL 26, HDL 30, amylase 25, lipase 124. Vitamin B12 1646, vitamin D 37.3. Folate 82.1. TSH 1.758. Hepatobiliary scan, the PIPIDA done on day of discharge show decreased ejection fraction, measuring 33% consistent with prominent gallbladder dysfunction, common bile duct was prominent and there may be a partial obstruction of the distal common bile duct. MRCP could be used to evaluate further. Also note, his lower extremity venous ultrasound was just said limited exam, the patient could not position. Also noted on 07/28/2019, head CT showed atrophic changes, no acute process. I think that day, he did not have his dentures and so his speech was markedly off. Extremity venous study done, no evidence for femoral or popliteal deep venous thrombosis within the bilateral lower extremities. MENTAL STATUS EXAMINATION: This is a well-developed, ill-appearing male, appearing at least stated age. Attention impaired. Concentration impaired. Speech is normal rate. Thought process linear and very limited. Thought content, not able to talk about much. No psychomotor agitation, no psychomotor retardation. Denied SI or HI. Denied auditory, visual, or tactile hallucinations. Memory noted to be impaired, insight impaired, judgment impaired. Fund of knowledge well below average. Mood and affect were congruent and euthymic. I will be happy to follow the patient on medical floor at the request of the hospitalist. Also, before he left our unit, Dr. Wallace Burks from [facility] [address] [place] [address] DISCHARGE SUMMARY Name: CHRISTACONORADRIA V Room #: 523A-A [facility] IN M.R.#: [id number] Admission: 07/26/19 Attend Phys: Fidencio Rosen DO Discharge: 08/01/19 Date of : 40 Report #: [id number] Surgery, consulted and apparently Gastroenterology did this as well, but I did not seem them. Please see their notes for further details. <ELECTRONICALLY SIGNED> By: Fidencio Rosen DO 08/02/19 1613 [id number] Fidencio Rosen DO /nt
--- NOTE | 2019-08-03 13:04 | NUR ---
08/02/19 KADE received a phone call from pt's dght Emily and asked for a report. Kade redirected her to the SW on the floor as he had d/c from [facility]. Emily reported she had left multiple messages and was frustrated wiuth the staff on 2nd floor. Kade recieved verbal permissoon to look in the chart and provide an update. Emily was satisfied with this intervention aand was very happy with the care this pt had on [facility]. Emily asked for a f/u call tomorrow wiht an update. 08/03/19 KADE attempted to retrieve a report for this pt for Emily but it is to be noted that she was getting reports through the night. KADE is available to help as needed.
== END 2019-08-01 16:03 | disposition short-term general hospital (02) | DRG 884 ==
LOC: ER 18:22 → SBH 21:05 → EROBS 21:05 → SBH 22:27
PROVIDERS: Hospitalist; Internal Medicine; Nurse Practitioner; Physician Assistant; ADMIT Psychiatry & Neurology Psychiatry
DX: F01.50 Vascular dementia, unspecified severity, without behavioral disturbance, psychotic disturbance, mood disturbance, and anxiety (principal); N18.3 Chronic kidney disease, stage 3 (moderate); M62.82 Rhabdomyolysis; E78.5 Hyperlipidemia, unspecified; I25.10 Atherosclerotic heart disease of native coronary artery without angina pectoris; I12.9 Hypertensive chronic kidney disease with stage 1 through stage 4 chronic kidney disease, or unspecified chronic kidney disease; F41.9 Anxiety disorder, unspecified; G62.9 Polyneuropathy, unspecified; K21.9 Gastro-esophageal reflux disease without esophagitis; K80.70 Calculus of gallbladder and bile duct without cholecystitis without obstruction; D64.9 Anemia, unspecified; Z88.5 Allergy status to narcotic agent; Z95.1 Presence of aortocoronary bypass graft; Z88.8 Allergy status to other drugs, medicaments and biological substances; Z79.82 Long term (current) use of aspirin; Z79.899 Other long term (current) drug therapy; R33.9 Retention of urine, unspecified; K82.8 Other specified diseases of gallbladder
CPT/HCPCS: 10880

== ENCOUNTER 2019-08-01 13:52 | Inpatient (IN) | payer OTHER ==
[~2019-08-01] VITALS: Ht 188 cm; Wt 84.5 kg
[~2019-08-01 13:52] MED LIST: ASA81BEC PO; DULCOLAX10 MG RECTAL; FAMOTIDINE 20 M20 MG PO; LIPITOR40 MG PO; LORATIDINE 10 M10 M1 PO; LORAZEPAM 0.50.5 MG PO; OLANZAPINE10 M2 IM; PLAVIX 75 MG TA75 MG PO; PROPRANOLOL 4040 M1 PO; RISPERDAL0.5 MG PO; SEROQUEL 100 M100 M1 PO; SEROQUEL 50 MG50 M1 PO; SUPER THERAVIT1 EACH PO; VITAMIN B12-FO1 EAC1 PO; ZYPREXA 5 MG TAB5 M1 PO
[2019-08-01] MEDS ORDERED: FLOMAX0.4 MG PO (14:00)
[2019-08-01] MEDS ORDERED: ZYPREXA 5 MG TAB5 M1 PO ×2 (14:01→14:02)
[2019-08-01] MEDS ORDERED: PEPCID20 MG PO (14:05)
[2019-08-01] MEDS ORDERED: PROSCAR 5MG TABL5 MG PO (14:06)
[2019-08-01] MEDS ORDERED: FOLIC ACID1 MG PO (14:06)
[2019-08-01 16:03] VITALS: BP 96/78
[2019-08-01 18:31] LABS: CHOLESTEROL 119 mg/dL (<200); HDL CHOLESTEROL 30 mg/dL (>40); LDL CHOLESTEROL 63 mg/dL (<100); TRIGLYCERIDE 132 mg/dL (<150); VLDL 26 mg/dL (<40)
[2019-08-01 18:37] LABS: ABSOLUTE NEUTROPHILS 7.2 thou/uL (1.4-8.2); BASOPHILS 0.5 % (0.0-2.0); EOSINOPHILS 3.6 % (0.0-3.0); HEMATOCRIT 37.2 % (42.0-52.0); HEMOGLOBIN 12.7 gm/dL (14.0-18.0); LYMPHOCYTES 13.1 % (24.0-44.0); MCH 29.7 pg (26.0-34.0); MCHC 34.1 g/dL (28.0-37.0); MONOCYTES 11.3 % (1.0-8.0); PLATELET COUNT 191 thou/uL (150-400); POLYS 71.5 % (36.0-66.0); RBC 4.28 mil/uL (4.50-6.00)
[2019-08-01 18:44] LABS: TSH 1.758 uIU/mL (0.358-3.740)
--- NOTE | 2019-08-01 18:46 | NUR ---
PT. ARRIVED AT FLOOR AROUND 1600; ALERT TO PERSON; ADMISSION PERFORMED; IV STARTED; MEDICATION UPDATED BASED ON CHART; PHYSICIAN NOTIFIED ABOUT PT ARRIVAL; ORDERS ON PLACE; CONSULT CALLED; POC ACTIVATED; BLADDER SCANNER SHOWED 196; INCONTINENT; NOT ABLE TO COLLECT URINE SAMPLE; PHYSICIAN NOTIFIED; NO NEW ORDERS; ASSESSMENT CHARGED; FOLLOWING POC; WILL PASS ON REPORT;
[2019-08-01 18:59] LABS: ALBUMIN 3.6 g/dL (3.4-5.0); CALCIUM 9.3 mg/dL (8.5-10.1); CREATININE 1.4 mg/dL (0.7-1.3); POTASSIUM 4.3 mmol/L (3.5-5.1); TOTAL BILIRUBIN 3.4 mg/dL (<0.1-1.0); TOTAL PROTEIN 6.5 g/dL (6.4-8.2)
[2019-08-01 19:13] LABS: FOLIC ACID 82.1 ng/mL (8.6-58.9)
[2019-08-01 20:05] VITALS: BP 113/71
[2019-08-01 20:30] VITALS: BP 113/71
[2019-08-01 21:30] VITALS: BP 113/71
--- NOTE | 2019-08-02 04:16 | NUR ---
PT HAD AN UNWITNNESSED NON-INJURY FALL AT APPROX 1930HRS. NO OBVIOUS INJURIES NOTED. DENIED PAIN. VSS. WAREHOUSE ASSOCIATE DRIVER NOTIFIED. PT'S DAUGHTER (DPAO) CALLED AND NOTIFIED. INCIDENT REPORT FILED AND CARE PLAN UPDATED.
[2019-08-02 05:55] VITALS: BP 112/94
--- NOTE | 2019-08-02 06:13 | NUR ---
PT A&O X1 ORIENTED TO SELF ONLY. HIGH FALL RISK. ASSIST X2-3. INCONTINENT. PT HAS NOT VOIDED OVERNIGHT BLADDER SCAN RESULT 425CC. PT ORDER TO INSERT LIMON WITH A DISCONTINUE ORDER FOR 08/01 RECEIVED AT HS. ORDER CLARIFIED WITH FISHER CRAB AND DO STRAIGHT CATH AT THIS TIME. PT NEEDS ASSIST FEEDING. PT HAD A UNWITNESSED NON-INJURY FALL AT HS
--- NOTE | 2019-08-02 06:54 | NUR ---
PT BLADDER SCAN 425CC. STRAIGHT CATH COMPLETED PER ORDERS 400CC. SAMPLE SENT TO LAB FOR UA PER ORDERS
[2019-08-02 07:33] LABS: ABSOLUTE NEUTROPHILS 5.2 thou/uL (1.4-8.2); BASOPHILS 0.6 % (0.0-2.0); EOSINOPHILS 3.2 % (0.0-3.0); HEMATOCRIT 34.8 % (42.0-52.0); HEMOGLOBIN 11.8 gm/dL (14.0-18.0); LYMPHOCYTES 10.5 % (24.0-44.0); MCH 29.6 pg (26.0-34.0); PLATELET COUNT 162 thou/uL (150-400); POLYS 73.7 % (36.0-66.0); RBC 3.99 mil/uL (4.50-6.00); RDW 15.9 % (10.5-14.5)
[2019-08-02 07:34] LABS: INR 1.1; PROTIME 11.7 Seconds (9.3-11.4)
[2019-08-02 07:40] VITALS: BP 118/83
[2019-08-02 07:40] LABS: ALBUMIN 3.3 g/dL (3.4-5.0); CALCIUM 8.8 mg/dL (8.5-10.1); CREATININE 1.3 mg/dL (0.7-1.3); MAGNESIUM 1.9 mg/dL (1.8-2.4); PHOSPHORUS 3.3 mg/dL (2.5-4.9); TOTAL BILIRUBIN 2.7 mg/dL (<0.1-1.0)
[2019-08-02 08:06] LABS: URINE BLOOD 1+ (Negative); URINE CLARITY CLEAR; URINE GLUCOSE-RANDOM* NEGATIVE (Negative); URINE KETONES 1+ (Negative); URINE LEUKOCYTES-REFLEX NEGATIVE (Negative); URINE NITRITE-REFLEX NEGATIVE (Negative); URINE PROTEIN (DIPSTICK) NEGATIVE (Negative); URINE SPECIFIC GRAVITY >= 1.030 (1.005-1.035)
[2019-08-02 08:08] LABS: URINE COLOR AMBER
[2019-08-02 08:11] LABS: ICTOTEST (BILI CONFIRMATORY) Negative (Negative); URINE BILIRUBIN NEGATIVE (Negative)
--- NOTE | 2019-08-02 08:21 | EKG ---
[facility] [place] [address] [place] [address] ELECTROCARDIOGRAM REPORT Name: ADRIA TELLO V Room #: 203-P ADM IN M.R.#: [id number] Admission: 08/01/19 Attend Phys: Yessi Beauchamp MD Discharge: Date of : 40 Report #: [id number] THIS REPORT FOR: cc: FATMATA BULLOCK Physician not on staff Vicente Leal MD [facility] THIS REPORT FOR: //name// [facility] Test Date: 2019-08-02 Test Time: 07:33:15 Pat Name: ADRIA TELLO Department: Room: 203 Gender: M Education Reviewer: MELE : 1940 Requested By: Carissa Wong Order Number: [id number] MD: Vicente Leal Measurements Intervals [place] Rate: 99 P: 49 UT: 153 QRS: -36 QRSD: 104 T: 58 QT: 343 QTc: 441 Interpretive Statements Sinus rhythm Left axis deviation Nonspecific ST segment abnormality Compared to ECG 07/26/2019 19:13:02 No significant change was found Electronically Signed On 08-02-2019 8:19:31 CDT by Vicente Leal [email or web address] <ELECTRONICALLY SIGNED> By: Vicente Leal MD, FAC 08/02/19 0819 2 Vicente Leal MD, [facility] /EPI
[2019-08-02 08:36] LABS: SQUAMOUS 0-3 Few /LPF (0-3)
[2019-08-02 08:37] LABS: BACTERIA-REFLEX 1-9 Few /HPF (None Seen); CASTS None Seen /LPF (None Seen); CRYSTALS None Seen /LPF (None Seen)
[2019-08-02 08:38] LABS: URINE WBC-REFLEX 0-5 Rare /HPF (0-5)
[2019-08-02 11:53] VITALS: BP 110/95
--- NOTE | 2019-08-02 12:42 | 2DMMODE ---
[address] [address] 2 D/M-MODE ECHOCARDIOGRAM Name: ADRIA TELLO V Room #: 203-P ADM IN M.R.#: [id number] Admission: 08/01/19 Attend Phys: Yessi Beauchamp MD Discharge: Date of : 40 Report #: [id number] THIS REPORT FOR: cc: FATMATA BULLOCK Physician not on staff Vicente Leal MD [facility] ~ APPROVED REPORT Study performed: 08/02/2019 11:28:59 EXAM: Comprehensive 2D, Doppler, and color-flow Echocardiogram Patient Location: Bedside Room #: 203 Status: routine BSA: 2.09 HR: 92 bpm BP: 118/83 mmHg Rhythm: NSR Other Information Study Quality: Technically Difficult Indications Pre-Op CAD Hypertension/HDD 2D Dimensions IVC: 19.00 mm Aortic Valve AoV Peak Avtar.: 1.30 m/s AO Peak Gr.: 6.76 mmHg Pulmonary Valve PV Peak Avtar.: 1.12 m/s PV Peak Gr.: 5.02 mmHg Tricuspid Valve TR Peak Avtar.: 2.98 m/s TR Peak Gr.: 35.48 mmHg PA Pressure: 40.00 mmHg Left Ventricle [address] [address] 2 D/M-MODE ECHOCARDIOGRAM Name: ADRIA TELLO V Room #: 203-P ADM IN M.R.#: [id number] Admission: 08/01/19 Attend Phys: Yessi Beauchamp, Discharge: Date of : 40 Report #: [id number] The left ventricle is normal size. Regional wall motion is not well visualized but grossly normal. There is normal left ventricular wall thickness. The left ventricular systolic function is normal. The left ventricular ejection fraction is within the normal range. LVEF is 55-60%. This study is not technically sufficient to allow evaluation of the LV diastolic function. Right Ventricle The right ventricle is normal size. The right ventricular systolic function is normal. Atria The left atrium size is normal. The right atrium size is normal. Aortic Valve The aortic valve is normal in structure. No aortic regurgitation is present. There is no aortic valvular stenosis. Mitral Valve The mitral valve is normal in structure. There is no mitral valve regurgitation noted. No evidence of mitral valve stenosis. Tricuspid Valve The tricuspid valve is normal in structure. There is trace to mild tricuspid regurgitation. Estimated PAP 40 mmHg. There is no pulmonary hypertension. Pulmonic Valve The pulmonary valve is normal in structure. There is no pulmonic valvular regurgitation. Great Vessels The aortic root is normal in size. IVC is normal in size and collapses >50% with inspiration. Pericardium There is no pericardial effusion. <Conclusion> Technically limited study The left ventricular systolic function is normal. Regional wall motion is not well visualized but grossly normal. LVEF is 55-60%. The aortic valve is normal in structure. No aortic regurgitation or stenosis [facility] [address] [place] [address] 2 D/M-MODE ECHOCARDIOGRAM Name: ADRIA TELLO V Room #: 203-P ADM IN M.R.#: [id number] Admission: 08/01/19 Attend Phys: Yessi Beauchamp, Discharge: Date of : 40 Report #: [id number] The mitral valve is normal in structure. No mitral valve regurgitation There is trace to mild tricuspid regurgitation. Estimated pulmonary artery pressure of 40 mmHg. There is no pericardial effusion. <ELECTRONICALLY SIGNED> By: Vicente Leal MD, FACC 08/02/19 1240 1240 39 Vicente Leal MD, FACC /INF
--- NOTE | 2019-08-02 15:53 | NUR ---
Patient admitted from [facility] unit. Patient with hallucinations. Sp with dtr Emily. Patient was residing independently in [place] when dtr rec call he was hallucinating. Family friend and police called dtr. She took patient to PCP then admit to local hospital. At hospital she reports 3 days said blood work fine but he was still hallucinationg and dtr reports they said he has denetia and sent to nursing facility. He was at [facility]. He cont with behaviors and [facility] unit accepted patient for admission. Dtr aware tenative plan to return to [facility] once stable. She reports she is trying for patient to be admitted skilled at [facility] in [facility]. She requests casemgt update facility. She reports her father would want to be DNR, casemgt updated phys. DPOA paperwork in scanned images. She wants to sp with sx. Requested Dr Burks call dtr. Casemgt following.
[2019-08-02 16:40] VITALS: BP 122/69
--- NOTE | 2019-08-02 17:01 | NUR ---
ASSESSMENT CHARTED. PT ALERT AND ORIENTED X2. VSS. NPO AFTER MIDNIGHT FOR LAP CHOLI IN AM. ORDERS GIVEN TO PLACE LIMON CATHETER. FAMILY UPDATED ON PT'S PROGRESS. FALL PRECAUTION IN PLACE. WILL CONTINUE TO MONITOR.
[2019-08-02 20:58] VITALS: BP 143/71
[2019-08-02 23:15] VITALS: BP 135/73
[2019-08-03] VITALS (12 sets, daily range): BP systolic 109–150; BP diastolic 62–94
--- NOTE | 2019-08-03 02:30 | NUR ---
Assumed pt care at 1930. Pt's alert to self only with hallucinations noted. Denies pain on assessment,VSS,Oxygen applied @ 2L/NC sats 83%,then 98%. Gets easily agitated/restless with cares and grabbing on things even when re-adjusted and hidden and pulled out his garcia with balloon inflated. Moderate bleeding from penis and pt still persistantly pulling on penis; order obtained for soft limb restraints from Analia YOON and applied. 3-way garcia reinserted,pt still has some bleeding around penis, will continue to monitor pt. Pt's NPO for possible lap-pascual today.IVF fluids via LAC w/o problems. Fall precautions in place,will continue to monitor pt.
[2019-08-03 06:32] LABS: HEMOGLOBIN 9.9 gm/dL (14.0-18.0); MCH 28.4 pg (26.0-34.0); MCHC 32.8 g/dL (28.0-37.0); MCV 86.4 fL (80.0-100.0); RBC 3.47 mil/uL (4.50-6.00); RDW 16.5 % (10.5-14.5); WBC 10.4 thou/uL (4.0-11.0)
[2019-08-03 06:45] LABS: ALBUMIN 2.2 g/dL (3.4-5.0); DIRECT BILIRUBIN 0.2 mg/dL (<0.1-0.2); TOTAL BILIRUBIN 0.2 mg/dL (<0.1-1.0)
[2019-08-03 06:46] LABS: CALCIUM 8.2 mg/dL (8.5-10.1); CREATININE 1.3 mg/dL (0.7-1.3); POTASSIUM 3.9 mmol/L (3.5-5.1)
--- NOTE | 2019-08-03 09:00 | NUR ---
PT arrived to unit from OR at 0845. VSS. PT is afebrile. PT appears confused and aggitated. Frequently grabbing the staff and trying to sit up. Restraints were resumed on unit. Bedside report was given from RN ORTHOPAEDIC stating PT was scheduled for a lap pascual today however in the OR PT was running a fever, tachycardiac, and appeared to have labored breathing. PT was transferred to ICU and covid-19 test was ordered. PT was settled into bed on 2L O2 via NC. RN received report from CCU KELLE Hartman. RN was told that Dr. Burks updated the family of changes. High fall risk precautions are in place. RN will continue to monitor.
--- NOTE | 2019-08-03 09:24 | NUR ---
At 0630 went to ccu to pick pt up for surgery. Nurse states he has been confused and pulling at garcia. Pt sleeping when entered room minimal verbal response. Pt in wrist restraints. Pt warm to touch. In pre op BP 130/85 HR 115-120 temp 100.4 axillary. Audible wheezing, labored breathing, intermittent coughing. Wheezing auscultated on right side and left side decreased. Dr. Miller notified and Dr. Burks notified. Dr. Burks here to see patient and cancelled surgery and asked for ICU bed CXR and Covid 19 test. Pt transfered to ICU using covid19 precautions.
--- NOTE | 2019-08-03 12:10 | NUR ---
Pt TRANSFERRED TO ICU THIS AM AFTER DUSTIN THOMAS CANCELLED D/T FEVER, RIGORS, AND LABORED BREATHING/COUGHING. D/T TRANSFER TO ICU FOR HIGHER LEVEL OF CARE AND CHANGE IN STATUS, WILL NEED NEW ORDERS IN ORDER TO RESUME PT SERVICES ONCE Pt MEDICALLY STABLE.
--- NOTE | 2019-08-03 14:27 | NUR ---
WOUND CARE F/U; THE PATIENT IS IN COVID19 RESTRICTIONS. THE RN SAYS THE TOE WOUNDS ARE STABLE AT THIS TIME. NO NEED TO CHANGE. CONTINUE CURRENT ORDERS. DISCUSSED WITH RN
--- NOTE | 2019-08-03 15:21 | NUR ---
FAXED CLINICAL UPDATE TO [facility] SPOKE WITH LINDA IN ADM SHE RECEIVED UPDATE. DP TO FOLLOW.
[2019-08-04] VITALS (24 sets, daily range): BP systolic 94–145; BP diastolic 51–78
--- NOTE | 2019-08-04 02:57 | NUR ---
0255: MULTIPLE EPISODES OF PT DESATTING TO 60'S AND IMMEDIATELY COMING BACK UP TO ABOVE 95%. PT PUT BACK ON NC 3L AND HEAD ELEVATED. CAR ROSAS CONTACTED REGARDING PT'S OBSTRUCTIVE SLEEP APNEA AND IN NEED TO CPAP MACHINE. CAR ROSAS ALSO INFORMED ABOUT PT IN ISOLATION FOR SUSPECTED COVID19. 0300: ORDER FOR PUMONOLOGY CONSULT GIVEN FOR AM.
[2019-08-04 05:24] LABS: CALCIUM 8.6 mg/dL (8.5-10.1); CREATININE 1.5 mg/dL (0.7-1.3); POTASSIUM 4.3 mmol/L (3.5-5.1); TOTAL BILIRUBIN 2.6 mg/dL (<0.1-1.0); TOTAL PROTEIN 5.3 g/dL (6.4-8.2)
[2019-08-04 05:49] LABS: HEMOGLOBIN 10.6 gm/dL (14.0-18.0); MCH 30.2 pg (26.0-34.0); MCHC 34.3 g/dL (28.0-37.0); MCV 87.9 fL (80.0-100.0); RBC 3.52 mil/uL (4.50-6.00); RDW 16.2 % (10.5-14.5); WBC 6.4 thou/uL (4.0-11.0)
--- NOTE | 2019-08-04 12:32 | NUR ---
ON-GOING ASSESSMENT: CM REVIEWED CHART AND SPOKE WITH ATTENDING. COVID TEST IS STILL PENDING AT THIS TIME. PT NEEDS LAP WILLIAM BUT AWAITING COVID RESULTS BEFORE PROCEEDING. PER PHYSICIAN HE SPOKE WITH PATIENTS DAUGHTER AND PLANS ARE TO PROCEED WITH LAP WILLIAM IF COVID IS NEGATIVE AND THEN WILL SEE HOW PT PROGRESSES POST OP TO WHAT THEIR GOALS OF CARE WILL BE. CM WILL CONTINUE TO FOLLOW TO ASSIT NEEDED.
--- NOTE | 2019-08-04 15:01 | NUR ---
PATIENT REMAINS ON 3L NC, O2 SATS >98%. PATIENT CONFUSED AND RESTLESS THROUGH MOST OF SHIFT. BECAME MORE AGITATED, PULLING AT LINES THIS AFTERNOON. MEDS GIVEN ORDERED. PATIENT ABLE TO REST WITH EYES CLOSED, STILL RESPONDING TO STAFF. PATIENT FOLLOWS SIMPLE COMMANDS, ATTEMPTS TO ASSIST WITH TURNING. SPEECH REMAINS GARBLED, MAKES MINIMAL ATTEMPTS TO COMMUNICATE WITH STAFF. REMAINS IN ISOLATION, AWAITING TEST RESULTS. LIMON REMAINS PATENT AND SECURED, URINE IS BLOOD TINGED WITH SOME BLOOD LEAKING AROUND INSERTION SITE OF CATHETER. WOUND CARE, ORAL CARE, & NANCY CARE PROVIDED. PATIENT HAD MODERATE SIZE BOWEL MOVEMENT THIS MORNING. FALL PRECAUTIONS IN PLACE. PATIENT AFEBRILE THIS SHIFT. SPOKE WITH DAUGHTER THIS MORNING FOR UPDATE. DAUGHTER REQUESTED TO SPEAK WITH PHYSICIAN REGARDING PATIENT STATUS. STATES THAT SHE WOULD LIKE MORE INFORMATION TO MAKE A DECISION REGARDING PATIENT'S CARE. CALLED AND NOTIFIED PROVIDER OF DAUGHTER'S'S/DPOA'S REQUEST.
[2019-08-05] VITALS (20 sets, daily range): BP systolic 110–147; BP diastolic 56–103
--- NOTE | 2019-08-05 04:08 | NUR ---
Patient making some progress towards outcome goals. Remains confused, responds to name, speech garbled. Attempts to reach for lines and catheter when unrestrained to reposition. Requires continued use of restraints to maintain lines ans catheter. Some bleeding around meatus. Blood pressure and rhtym stable. Temp 99. Oxygenation optimal with 3L/NC sats 98-100%, clear upper lobes, wheezing lower lobes. Kept NPO, frequent oral care. IVfluids infusing. Fentanyl given x 1 for restlessness/agitation.
[2019-08-05 05:27] LABS: HEMATOCRIT 30.8 % (42.0-52.0); HEMOGLOBIN 10.6 gm/dL (14.0-18.0); MCHC 34.3 g/dL (28.0-37.0); MCV 87.5 fL (80.0-100.0); RBC 3.53 mil/uL (4.50-6.00); RDW 16.3 % (10.5-14.5)
[2019-08-05 05:42] LABS: CALCIUM 8.5 mg/dL (8.5-10.1); CREATININE 1.2 mg/dL (0.7-1.3); POTASSIUM 3.4 mmol/L (3.5-5.1)
--- NOTE | 2019-08-05 09:07 | NUR ---
PATIENT RESTING IN BED WITH EYES CLOSED, APPEARS COMFORTABLE. NO S/S DISTRESS NOTED. IVF INFUSING. LIMON PATENT AND SECURED. COMFORT MEASURES PROVIDED. FALL PRECAUTIONS REMAIN IN PLACE.
--- NOTE | 2019-08-05 15:56 | NUR ---
CESAR reviewed chart and spoke with nursing and attending physician. Pt was made comfort care yesterday. Pt's COVID test did come back negative. Pt's dtr, Emily, was at the bedside earlier today. Request for spiritual care. CESAR spoke with pt's dtr, Emily, via phone to discuss possible transfer to hospice facility should pt remain stable. Outside the Hospital DNR form signed by pt's dtr and physician, and on chart. Pt's dtr lives in [place], [place] and the [facility] will be closer to her. Pt's dtr requests referral to be sent to Hospice for their [place] location. CESAR faxed referral and spoke with Jana in intake, who will contact pt's dtr and attending physician for peer to peer review, as the hospice RNs are not evaluating pts at the bedside. CESAR spoke with Nancy at the [facility] in [place] ([phone]) per pt's dtr's request. Pt's dtr wanted to ensure that pt goes to a contracted [facility] facility. CESAR explained that those are retirement care facilities and that while at the hospice house, pt's Medicare benefit will be used. Nancy updated with the plan of care. CESAR provided update to pt's dtr, who is in agreement with discharge plan. CESAR updated pt's RN. Ambulance form will need to be faxed once pt has been accepted and a bed is available. Finalized discharge orders/summary will also need to be faxed. Nursing to call report. CESAR is available to assist as needed. [facility]---Phone; [phone]
[2019-08-06 05:55] VITALS: BP 146/64
--- NOTE | 2019-08-06 06:46 | NUR ---
ASSUMED PT CARE AT APPROX 1900.PT WAS ALERT,CONFUSED AND RESTLESS AT SHIFT CHANGE.PT PULLED HI SIV OUT,WAS REPLACED.PT RECEIVED PAIN MED FOR GEN PAIN.TIP OF HIS URINAL MEATUS WAS BLOODY AT START OF SHIFT BC PER REPORT,PT PULLED LIMON OUT.PT'S DTR CALLED,WAS UPDATED ON PT'S CONDITION.PT RESTING ON HS BED ATTHIS TIME.FALL PRECAUTIONS IN PLACE,CALL LIGHT WITHIN REACH.
[2019-08-06 07:20] VITALS: BP 125/74
--- NOTE | 2019-08-06 12:36 | NUR ---
ASSUMED CARE AT 0700. PT RESTLESS AND AGITATED AT TIMES. PRN MEDS GIVEN ORDERED. PT ON COMFORT CARE MEASURES. SPOKE WITH HOSPICE WHO DOESN'T HAVE A BED AVAILABLE, WILL CALL WHEN THEY DO. PIV IN PLACE. PT VOIDING. NO BM. WILL CONTINUE TO MONITOR
[2019-08-06 15:56] VITALS: BP 119/69
[2019-08-06 19:25] VITALS: BP 140/79
--- NOTE | 2019-08-07 00:06 | NUR ---
PT RESTLESS EARLIER THIS SHIFT.INCONTINENT OF BLADDER,BED CHANGED,BARRIER CREAM TO BUTTOCK.SCAB ON THE TOES ON LISANDRO FEET,CLEANED WITH SALINE,BETADINE APPLIED,LEFT OPEN TO AIR.PT GIVEN FENTNYL,PT RESTING COMFORTABLY ON HIS BED AT THIS TIME.NO BM SO FAR.ORDER PUT IN FOR A BED EXTENSION.FALL PRECAUTIONS IN PLACE,CALL LIGHT WITHIN REACH.
[2019-08-07 04:15] VITALS: BP 148/82
[2019-08-07 07:38] VITALS: BP 149/82
[2019-08-07 15:38] VITALS: BP 131/87
[2019-08-07 19:08] VITALS: BP 145/111
--- NOTE | 2019-08-08 02:46 | NUR ---
ASSUMED PT CARE AT 1900. PT CURRENTLY RESTING IN BED WITH EYES CLOSED, NO S/S OF PAIN OBSERVED. INCONTINENT OF BLADDER THIS EVENING. WAS GIVEN A BED BATH. PT IS PLEASANT THIS EVENING, LAUGHS AT JOKES. MAKES CONVERSATION BUT MOST OF IT IS MUMBLES. LIKES WARM BLANKETS- REALLY SEEMS TO RELAX HIM. SOME HALLUCINATIONS OBSERVED PATIENT WAS SWATTING AT THE AIR OCCASIONALLY. NO OTHER SIGNIFICANT CHANGES.
[2019-08-08 03:00] VITALS: BP 136/79
[2019-08-08 07:23] VITALS: BP 154/83
--- NOTE | 2019-08-08 10:28 | NUR ---
WOUND CARE F/U; TODAY ROUNDING WITH MACIEL BARAJAS RN WOCN. THE PATIENT CONDITION HAS IMPROVED FROM ICU TO NO ON 4S. THE PATIENT IS ALERT AND INTERACTING WITH THE STAFF. THERE ARE NO NEW WOUNDS AND NO BREAKDOWN ON THE HEELS OR BUTTOCKS. THE PATIENT CAN TURN HIMSELF. RECOMMENDATIONS; NONE AT THIS TIME THE TOES ARE UNCHANGED FROM PRIOR ASSESSMENTS. NO NEED TO FOLLOW AT THIS TIME, WOUND CARE WILL SIOGN OFF. DISCUSSED WITH KELLE
--- NOTE | 2019-08-08 11:18 | NUR ---
ASSUMED CARE OF THE PT AT 0700. PT IS ALERT TO SELF ONLY AND MUMBLES THROUGHOUT THE DAY, CANNOT UNDERSTAND. PT IS VERY ANXIOUS AND MOVES THROUGHOUT THE BED, CAUSING BED ALARM TO SOUND OFF, BUT DOES NOT TRY TO GET UP. PT CAN TURN SELF. L WRIST IV DRY AND INTACT. PT INCONTINENT OF B&B. REFUSED SCD'S. NOC NURSE SPOKE WITH DAUGHTER LUBA, WILL F/U. FALL PRECAUTIONS IN PLACE, BED IN THE LOWEST POSITION AND CALL LIGHT IS WITHIN REACH. WILL CONTINUE TO MONITOR THE PT.
--- NOTE | 2019-08-08 12:11 | NUR ---
[facility] FOLLOWED UP WITH HOSPICE THIS MORNING. CM SPOKE WITH ARABELLA AT THEIR [facility] LOCATION AND THEY INDICATED THAT THEY CAN ACCEPT PT TODAY AND THAT THEY WOULD LIKE PT PT DISCHARGE AROUND 1300. CM CALLED AND NOTIFIED PT'S DTR SHE IS AWARE AND AGREEABLE. CM NOTIFIED NURSE. REPORT TO BE CALLED TO KYLE AT . NO OTHER CM INTERVENTION INDICATED. CASE CLOSED.
== END 2019-08-08 14:26 | disposition hospice, home (50) | DRG 444 ==
LOC: TBA 13:52 → ICU 16:40 → 2N 16:40 → ICU 08-03 08:30 → 4S 08-05 18:32
PROVIDERS: Hospitalist; Nurse Practitioner; ADMIT Internal Medicine
DX: K80.61 Calculus of gallbladder and bile duct with cholecystitis, unspecified, with obstruction (principal); E43 Unspecified severe protein-calorie malnutrition; J96.01 Acute respiratory failure with hypoxia; K83.09 Other cholangitis; F03.91 Unspecified dementia, unspecified severity, with behavioral disturbance; M62.82 Rhabdomyolysis; E46 Unspecified protein-calorie malnutrition; G93.40 Encephalopathy, unspecified; K82.8 Other specified diseases of gallbladder; N18.3 Chronic kidney disease, stage 3 (moderate); L03.039 Cellulitis of unspecified toe; F22 Delusional disorders; R50.9 Fever, unspecified; I25.10 Atherosclerotic heart disease of native coronary artery without angina pectoris; K21.9 Gastro-esophageal reflux disease without esophagitis; I12.9 Hypertensive chronic kidney disease with stage 1 through stage 4 chronic kidney disease, or unspecified chronic kidney disease; D64.9 Anemia, unspecified; E78.5 Hyperlipidemia, unspecified; N40.1 Benign prostatic hyperplasia with lower urinary tract symptoms; G62.9 Polyneuropathy, unspecified; R33.8 Other retention of urine; E80.6 Other disorders of bilirubin metabolism; G47.00 Insomnia, unspecified; F01.50 Vascular dementia, unspecified severity, without behavioral disturbance, psychotic disturbance, mood disturbance, and anxiety; Z96.659 Presence of unspecified artificial knee joint; Z51.5 Encounter for palliative care; Z20.828 Contact with and (suspected) exposure to other viral communicable diseases; Z66 Do not resuscitate; Z88.5 Allergy status to narcotic agent; Z88.8 Allergy status to other drugs, medicaments and biological substances; Z79.899 Other long term (current) drug therapy; Z95.1 Presence of aortocoronary bypass graft; Z68.23 Body mass index [BMI] 23.0-23.9, adult
CPT/HCPCS: 10078; 10081; 10102; 10797